=== PATIENT | female | born 1985 | race African-American/Black ===

== ENCOUNTER 2018-09-04 22:49 | Observation (INO) | payer BC, MEDICAID ==
[~2018-09-04] VITALS: Ht 165.1 cm; Wt 85.7 kg
[2018-09-04 23:23] LABS: APPEARANCE,URINE Clear (CLEAR); BILIRUBIN,URINE Negative (NEGATIVE); COLOR,URINE Yellow (YELLOW); GLUCOSE, URINE (UA) Negative (NEGATIVE); KETONES,URINE Negative (NEGATIVE); LEUKOCYTE ESTERASE ,URINE Negative (NEGATIVE); NITRATE,URINE Negative (NEGATIVE); OCCULT BLOOD,URINE Negative (NEGATIVE); PH,URINE 6.5 (5.0-8.0); PROTEIN,URINE Negative (NEGATIVE)
[2018-09-05] MEDS ORDERED: TERBUTALINE SULFATE VIAL 1MG/ML SQ PRN (00:15)
[2018-09-05] MEDS ORDERED: LACTATED RINGERS 1000ML IV SCH (00:15)
[2018-09-05] MEDS ORDERED: LACTATED RINGERS 1000ML 1,000 ML IV SCH (00:15)
[2018-09-05] MEDS ORDERED: TERBUTALINE SULFATE VIAL 1MG/ML SQ ONE (00:18)
[2018-09-05] MEDS ORDERED: LACTATED RINGERS 1000ML 1,000 ML IV ONE (00:18)
== END 2018-09-05 05:00 | disposition home or self-care (01) ==
LOC: EDH 22:49 → LDH 22:50
PROVIDERS: ADMIT Obstetrics & Gynecology; ATTEND Obstetrics & Gynecology
DX: O62.9 Abnormality of forces of labor, unspecified (principal); Z3A.36 36 weeks gestation of pregnancy
CPT/HCPCS: 81003; 99283; G0378 ×6; J3105; J7120; 96360; 96361